=== PATIENT | male | born 1985 | race African-American/Black ===

== ENCOUNTER 2023-05-24 09:33 | Emergency (ER) | payer OTHER ==
[2023-05-24 09:38] VITALS: BMI 19.0
[2023-05-24] MEDS ORDERED: ACETAMINOPHEN 325 MG TABLET (FP) ONE (10:23)
[2023-05-24] MEDS: ACETAMINOPHEN 500 MG TABLET (FP) PO ONE (10:37)
[2023-05-24 10:42] LABS: BASO % 0.7 % (0-2.0); EOS % 0.2 % (0-4.5); HEMATOCRIT 42.1 % (35.4-49); HEMOGLOBIN 14.3 GM/dL (11.7-16.9); MCH 34.1 pg (25.7-33.7); MEAN CELL VOLUME 100.3 fl (80-96); MEAN PLT VOLUME 6.5 fl (7.5-11.1); MONO % 8.6 % (3.8-10.2); NEUT % 76.5 % (42.8-82.8); PLATELET COUNT 277 10^3/uL (134-434); RDW 14.2 % (11.9-15.9); WHITE BLOOD COUNT 14.9 K/mm3 (4.0-10.0)
[2023-05-24 10:50] LABS: PROTHROMBIN TIME (PATIENT) 11.6 SEC (9.7-13.0)
[2023-05-24 10:53] LABS: ACTIVATED PTT 28.3 SECONDS (25.2-36.5)
[2023-05-24 11:00] LABS: CHLORIDE 106 mmol/L (98-107); SODIUM 140 mmol/L (136-145)
[2023-05-24 11:03] LABS: ALBUMIN 4.4 g/dl (3.4-5.0); ANION GAP 7 mmol/L (4-13); BLOOD UREA NITROGEN 8.5 mg/dL (7-18); CO2 27 mmol/L (21-32); GLUCOSE,RANDOM 96 mg/dL (74-106); MAGNESIUM 2.3 mg/dL (1.8-2.4)
[2023-05-24 11:06] LABS: CREATININE 0.8 mg/dL (0.55-1.3); SGOT/AST 87 U/L (15-37); SGPT/ALT 77 U/L (13-61)
[2023-05-24 11:07] LABS: BILIRUBIN,TOTAL 0.4 mg/dL (0.2-1)
[2023-05-24 11:09] LABS: ALK PHOS 66 U/L (45-117)
[2023-05-24 11:50] VITALS: RESP 19
[2023-05-24 11:55] VITALS: BP 129/59; PULSE 97; TEMP 99.1
== END 2023-05-24 15:44 | disposition home or self-care (01) ==
LOC: JER 09:33
DX: R07.89 Other chest pain (principal); R00.2 Palpitations; R06.02 Shortness of breath; M79.662 Pain in left lower leg
CPT/HCPCS: 36415; 71046-TC-FY; 80053; 82550; 82553; 83735; 84484; 85025; 85379; 85610; 85730; 93005; 93010; 93971-TC; 99285-25

== ENCOUNTER 2023-05-26 20:01 | Emergency (ER) | payer OTHER ==
[2023-05-26 20:08] VITALS: BP 123/81; PULSE 94; RESP 19; TEMP 98; BMI 19.8
[2023-05-26] MEDS ORDERED: LORazepam 0.5 MG TABLET ONE (20:45)
[2023-05-26] MEDS: LORazepam 2 MG TABLET PO ONE (20:45)
== END 2023-05-26 21:00 | disposition home or self-care (01) ==
LOC: JER 20:01
DX: R00.2 Palpitations (principal)
CPT/HCPCS: 93005; 93010; 99283-25

== ENCOUNTER 2023-08-20 10:21 | Emergency (ER) | payer OTHER ==
[2023-08-20 10:30] VITALS: BP 142/87; PULSE 95; RESP 18; TEMP 98; BMI 19.8
[2023-08-20] MEDS ORDERED: AMOX TR/POT CLAV 875MG/125MG TABLETS (FP) ONE (11:47)
[2023-08-20] MEDS: AMOX TR/POT CLAV 875MG/125MG TABLETS (FP) PO ONE (11:47)
== END 2023-08-20 11:48 | disposition home or self-care (01) ==
LOC: JERFT 10:21
DX: K04.7 Periapical abscess without sinus (principal); K08.89 Other specified disorders of teeth and supporting structures
CPT/HCPCS: 99283-25

== ENCOUNTER 2024-01-09 12:37 | Emergency (ER) | payer OTHER ==
[2024-01-09 12:46] VITALS: TEMP 98.1; BMI 19.2
[2024-01-09 14:22] LABS: BASO % 0.6 % (0-2.0); EOS % 0.2 % (0-4.5); HEMATOCRIT 44.1 % (35.4-49); HEMOGLOBIN 14.8 GM/dL (11.7-16.9); LYMPH % 19.4 % (8-40); MCH 34.2 pg (25.7-33.7); MCHC 33.6 g/dl (32.0-35.9); MEAN CELL VOLUME 101.8 fl (80-96); MEAN PLT VOLUME 6.5 fl (7.5-11.1); MONO % 8.8 % (3.8-10.2); PLATELET COUNT 270 10^3/uL (134-434); RBC 4.34 M/mm3 (4.00-5.60); RDW 13.2 % (11.9-15.9); WHITE BLOOD COUNT 13.7 K/mm3 (4.0-10.0)
[2024-01-09 14:36] LABS: POTASSIUM 3.8 mmol/L (3.5-5.1)
[2024-01-09 14:39] LABS: ALBUMIN 4.2 g/dl (3.4-5.0); CALCIUM 9.6 mg/dL (8.5-10.1)
[2024-01-09 14:41] LABS: CREATININE 0.9 mg/dL (0.55-1.3)
[2024-01-09 14:43] LABS: BILIRUBIN,TOTAL 0.5 mg/dL (0.2-1); BLOOD UREA NITROGEN 12.5 mg/dL (7-18); TOT PROT 7.6 g/dl (6.4-8.2)
[2024-01-09 15:59] VITALS: BP 123/79; PULSE 74; RESP 16
== END 2024-01-09 16:03 | disposition home or self-care (01) ==
LOC: JER 12:37
DX: R00.2 Palpitations (principal); R07.89 Other chest pain
CPT/HCPCS: 36415; 71046-TC-FY; 80053; 84484; 85025; 93005; 93010; 99285-25